=== PATIENT | female | born 1995 | race Caucasian/White ===

== ENCOUNTER 2016-09-27 11:19 | Emergency (ER) | payer OTHER ==
[~2016-09-27] VITALS: Ht 154.9 cm; Wt 67.1 kg
[2016-09-27 11:32] VITALS: BP 141/83
--- NOTE | 2016-09-27 11:40 | NUR ---
Patient ambulated to bed 04.
--- NOTE | 2016-09-27 11:44 | NUR ---
PATIENT PRESENTS TO ED WITH C/O MID BACK PAIN . PT STATES THE STATES THE PAIN STARTED 2 DAYS AGO AND HAS GOTTEN WORSE. PT DENIES ANY FALL OR TRAUMA . DENIES N/V/D; SKIN IS PINK/WARM/DRY; AAOX4 WITH EVEN AND STEADY GAIT; LUNGS CLEAR BL; HR EVEN AND REGULAR; PT DENIES ANY FEVER, CP, SOB, OR COUGH AT THIS TIME; PATIENT STATES PAIN OF 9/10 AT THIS TIME; VSS; PATIENT POSITIONED FOR COMFORT; HOB ELEVATED; BEDRAILS UP X2; BED DOWN. ER MD MADE AWARE OF PT STATUS.
--- NOTE | 2016-09-27 12:55 | NUR ---
Dr. Tesfaye evaluating patient at bedside.
[2016-09-27] MEDS ORDERED: KETOROLAC 60 MG/2 ML VIAL IM ONE ×2 (13:00→13:09)
[2016-09-27] MEDS ORDERED: DIAZEPAM PFS 10 MG/2 ML SYR IM ONE (13:00)
[2016-09-27] MEDS ORDERED: DIAZEPAM PFS 10 MG/2 ML SYR ONE (13:08)
--- NOTE | 2016-09-27 13:15 | NUR ---
MEDICATION ADMINISTERED ORDERED.
--- NOTE | 2016-09-27 13:49 | NUR ---
Patient discharged with v/s stable. Written and verbal after care instructions given and explained. Patient alert, oriented and verbalized understanding of instructions. Ambulatory with steady gait. All questions addressed prior to discharge. ID band removed. Patient advised to follow up with PMD. Rx of VALIUM 5MG, NORCO 5/325MG, AND MOTRIN 600MG given. Patient educated on indication of medication including possible reaction and side effects. Opportunity to ask questions provided and answered.
[2016-09-27 13:52] VITALS: BP 106/66
== END 2016-09-27 13:49 | disposition home or self-care (01) ==
LOC: MED 11:19
DX: M54.5 Low back pain (principal)
CPT/HCPCS: 81002; 81025; 96372; 99284; J1885; J3360

== ENCOUNTER 2017-05-08 16:41 | Emergency (ER) | payer OTHER ==
[~2017-05-08] VITALS: Ht 154.9 cm; Wt 69.6 kg
[2017-05-08 17:08] VITALS: BP 118/73
--- NOTE | 2017-05-08 17:10 | NUR ---
PATIENT TO OF 2
--- NOTE | 2017-05-08 17:12 | NUR ---
DR. MARTIN EVALUATING PATIENT
--- NOTE | 2017-05-08 17:15 | NUR ---
PATIENT PRESENTS TO ED WITH C/O NECK PAIN X TODay. PT STATES SHE HAS COUGH X 1 WEEK AND DEVELOP A FEVER THIS MORNING. DENIES N/V/D; SKIN IS PINK/WARM/DRY; AAOX4 WITH EVEN AND STEADY GAIT;HR EVEN AND REGULAR; PT DENIES ANY CP OR SOB AT THIS TIME; PATIENT STATES PAIN OF 7/10 AT THIS TIME;PATIENT POSITIONED FOR COMFORT; ER MD MADE AWARE OF PT STATUS.
--- NOTE | 2017-05-08 18:25 | NUR ---
Patient discharged with v/s stable. Written and verbal after care instructions given and explained. Patient verbalized understanding. Ambulatory with steady gait. All questions addressed prior to discharge. Advised to follow up with PMD.
[2017-05-08 18:26] VITALS: BP 124/78
== END 2017-05-08 18:25 | disposition home or self-care (01) ==
LOC: MED 16:41
DX: R59.0 Localized enlarged lymph nodes (principal)
CPT/HCPCS: 99282

== ENCOUNTER 2020-08-27 13:46 | Emergency (ER) | payer OTHER ==
[~2020-08-27] VITALS: Ht 154.9 cm; Wt 70.3 kg
[2020-08-27 13:57] VITALS: BP 124/70
--- NOTE | 2020-08-27 14:45 | NUR ---
24 YEAR OLD FEMALE COMPLAINS OF ALLERGIC REACTION TO MEDICATION. PT STATES THAT SHE WAS TAKING ANTIBIOTIC PRESCRIBED FROM DOCTOR AND IS GETTING RASH THROUGHOUT BODY. PT DENIES PAIN OR SOB. PT AOX4, BREATHING EVEN AND UNLABORED, SKIN WARM AND DRY. BED IN LOWEST POSITION, SEMI-FOWLERS, LOCKED, BED RAIL UPX1. PMH - DENIES
[2020-08-27] MEDS: NACL 0.9% 1,000 ML IV ONE (14:55)
[2020-08-27 15:11] LABS: BASOPHILS % (AUTO) 0.2 % (0.0-2.0); EOSINOPHILS # (AUTO) 0.1 K/uL (0-0.4); EOSINOPHILS % (AUTO) 5.7 % (0.0-4.0); HEMATOCRIT 41.3 % (36-48); HEMOGLOBIN 14.1 g/dL (12.0-16.0); LYMPHOCYTES # (AUTO) 0.4 K/uL (2.5-16.5); LYMPHOCYTES % (AUTO) 17.9 % (20.5-51.1); MEAN CORPUSCULAR HEMOGLOBIN 30 pg (27-31); MEAN CORPUSCULAR HGB CONC 34 g/dL (33-37); MEAN CORPUSCULAR VOLUME 88.7 fL (80-94); MONOCYTES # (AUTO) 0.1 K/uL (0.8-1.0); MONOCYTES % (AUTO) 5.4 % (1.7-9.3); NEUTROPHILS # (AUTO) 1.5 K/uL (1.8-7.7); NEUTROPHILS % (AUTO) 70.8 % (42.2-75.2); PLATELET COUNT (AUTO) 186 K/uL (140-450); RED BLOOD CELL COUNT(AUTO) 4.66 MIL/uL (4.20-5.40); RED CELL DISTRIBUTION WIDTH 14.5 % (11.6-13.7); WHITE BLOOD COUNT (AUTO) 2.1 K/uL (4.8-10.8)
[2020-08-27 15:19] LABS: APPEARANCE,URINE CLOUDY (CLEAR); BILIRUBIN,URINE NEGATIVE (NEGATIVE); BLOOD, URINE 3+ (NEGATIVE); COLOR,URINE DARK YELLOW (YELLOW); LEUKOCYTE ESTERASE ,URINE NEGATIVE (NEGATIVE); NITRITE, URINE NEGATIVE (NEGATIVE); UGLUCOSE NEGATIVE (NEGATIVE)
[2020-08-27 15:31] LABS: ALBUMIN 3.7 g/dL (3.4-5.0); ANION GAP 11.6 (8-16); CREATININE 1.1 mg/dL (0.6-1.3); POTASSIUM 3.6 mmol/L (3.5-5.1); TOTAL BILIRUBIN 0.3 mg/dL (0.0-1.0)
--- NOTE | 2020-08-27 15:38 | NUR ---
Female Cpc accompanied female patient for Ultrasound.
[2020-08-27] MEDS ORDERED: ACET-10509 PO (16:45)
[2020-08-27] MEDS ORDERED: NAPR-54 PO (16:45)
--- NOTE | 2020-08-27 16:59 | NUR ---
Patient discharged with v/s stable. Written and verbal after care instructions given and explained. Patient alert, oriented and verbalized understanding of instructions. Ambulatory with steady gait. All questions addressed prior to discharge. ID band removed. Patient advised to follow up with PMD. Rx of tynenol 500mg TID PO, and naproxen 500mg BID PO given. Patient educated on indication of medication including possible reaction and side effects. Opportunity to ask questions provided and answered.
--- NOTE | 2020-08-30 02:33 | NUR ---
LATE ENTRY- NORMAL SALINE 0.9% DISCONTINUED AT 1600
== END 2020-08-27 16:59 | disposition home or self-care (01) ==
LOC: MED 13:46
DX: R50.9 Fever, unspecified (principal); D72.819 Decreased white blood cell count, unspecified; R21 Rash and other nonspecific skin eruption; R59.9 Enlarged lymph nodes, unspecified
CPT/HCPCS: 36415; 80053; 81001; 81025; 83605; 85025; 87086; 96360; 99284; J7030; 96361